=== PATIENT | female | born 1995 | race African-American/Black ===

== ENCOUNTER → 2016-06-19 | Outpatient (CLI) | payer OTHER ==
[~2016-06-19] MED LIST: IBUP80TA PO
--- NOTE | 2016-06-19 19:23 | REP ---
Pelvic ultrasound: Comparisons 04/22/2014. The study is performed with transabdominal, endovaginal and Doppler ultrasound assessment. The urinary bladder is adequately distended. The uterus is anteverted and normal size measuring 8.3 x 4.3 x 4.9 cm. The endometrium is not thickened measuring 3.8 mm. There is an IUD within the endometrial canal. The ovaries are normal size. Right ovary measures 2.6 x 2.1 x 2.0 cm. Left ovary measures 2.7 x 1.3 x 2.2 cm. There is no dominant ovarian mass or cyst. There is vascular flow in both ovaries. The Doppler resistive index of the intraparenchymal arteries on the right is 0.46, left 0.45. Impression: There is an IUD within the endometrial canal. There is vascular flow in both ovaries. Otherwise, negative pelvic ultrasound. Signed by Cortez Ramirez MD 06/19/2016 07:15 P
== END ==
LOC: M RAD 18:03
PROVIDERS: ATTEND Nurse Practitioner Adult Health
DX: Z01.419 Encounter for gynecological examination (general) (routine) without abnormal findings (principal); Z97.5 Presence of (intrauterine) contraceptive device

== ENCOUNTER → 2016-07-16 | Outpatient (REF) | payer OTHER | LOC: M LAB REF 12:15 | PROVIDERS: ATTEND Physician Assistant Medical | DX: Z11.3 Encounter for screening for infections with a predominantly sexual mode of transmission (principal) ==

== ENCOUNTER → 2016-10-22 | Outpatient (REF) | payer MEDICAID, OTHER | LOC: M LAB REF 16:35 | PROVIDERS: ATTEND Physician Assistant Medical | DX: Z20.2 Contact with and (suspected) exposure to infections with a predominantly sexual mode of transmission (principal) ==

== ENCOUNTER → 2017-01-11 | Outpatient (REF) | payer OTHER | LOC: M LAB REF 18:25 | PROVIDERS: ATTEND Physician Assistant | DX: J02.9 Acute pharyngitis, unspecified (principal) ==

== ENCOUNTER → 2017-12-09 | Outpatient (REF) | payer OTHER ==
[2017-12-09 23:40] LABS: CHLAMYDIA DNA AMPLIFICATION NEGATIVE (NEGATIVE); GC DNA AMPLIFICATION NEGATIVE (NEGATIVE)
== END ==
LOC: M LAB REF 19:18
DX: R30.0 Dysuria (principal)
CPT/HCPCS: 87086

== ENCOUNTER → 2018-06-18 | Outpatient (REF) | payer OTHER ==
[2018-06-18 19:33] LABS: INFLUENZA A AMPLIFICATION NEGATIVE (NEGATIVE); INFLUENZA B AMPLIFICATION NEGATIVE (NEGATIVE)
== END ==
LOC: M LAB REF 18:52
PROVIDERS: ATTEND Physician Assistant Medical
DX: J11.1 Influenza due to unidentified influenza virus with other respiratory manifestations (principal)

== ENCOUNTER → 2019-12-20 | Outpatient (REF) | payer OTHER | LOC: M LAB REF 16:03 | PROVIDERS: ATTEND Physician Assistant | DX: R30.0 Dysuria (principal) ==

== ENCOUNTER → 2020-05-29 | Outpatient (CLI) | payer OTHER ==
--- NOTE | 2020-05-29 22:47 | REP ---
INDICATION: IUD PAIN COMPARISON: None. TECHNIQUE: Transabdominal pelvic ultrasound followed by transvaginal examination for better evaluation of the endometrium and adnexa with color Doppler evaluation of the ovaries. FINDINGS: Bladder is unremarkable and measures 6.5 x 2.2 x 4.9 cm. Normal anteverted uterus measures 8.9 x 4.0 x 4.4 cm. The endometrial complex measures 2 mm thickness. IUD identified in central satisfactory position. Bilateral ovaries are normal in appearance and vascularity without evidence for torsion. Right ovary measures 3.2 x 2.5 x 2.2 cm and includes 1.2 cm presumed physiologic cyst; R I = 0.40. Left ovary measures 2.6 x 1.7 x 2.2 cm; R I = 0.42. No pelvic fluid or adnexal mass lesion IMPRESSION: Essentially normal pelvic ultrasound. IUD appears to be in satisfactory position. Right ovarian cyst likely physiologic. <Electronically signed by David Sharpe > 05/29/20 [id number]
== END ==
LOC: M RAD 11:44
PROVIDERS: ATTEND Nurse Practitioner Adult Health
DX: N94.10 Unspecified dyspareunia (principal)

== ENCOUNTER 2020-06-05 15:07 | Emergency (ER) | payer OTHER ==
[~2020-06-05] VITALS: Ht 162.6 cm; Wt 64.3 kg
[2020-06-05 15:08] VITALS: BP 133/86
[2020-06-05] MEDS ORDERED: MIRE1IUD IU (15:17)
--- NOTE | 2020-06-05 15:46 | REP ---
INDICATION: facial trauma. COMPARISON: Comparison maxillofacial CT study October 07, 2010.. TECHNIQUE: Helical scanning is acquired and 2 mm axial images re-formatted. Coronal MPR images are generated and reviewed. FINDINGS: Bony orbital and paranasal sinus margins are intact. Zygomatic arches are intact. The nasal bone and inferior maxillary spine show no evidence of fracture. No mandibular fracture is seen. No skull base fracture is appreciated. The frontal sinuses are clear. Ethmoid air cells are clear except for a small mucous retention cyst anteriorly on the left. There are small mucous retention cysts 1 in each side of the maxillary sinuses as well. Ostiomeatal complexes are unremarkable. Bony nasal septum is in the midline. Right-sided nasal jewelry is noted incidentally. No intraorbital mass or hematoma is seen. The visualized intracranial structures are unremarkable. IMPRESSION: No traumatic abnormality noted. Small mucous retention cysts in the maxillary sinuses and left ethmoid sinuses as noted above. <Electronically signed by Mihai Anguiano > 06/05/20 [id number]
== END 2020-06-05 16:45 | disposition home or self-care (01) ==
LOC: M ED 15:07
DX: S00.83XA Contusion of other part of head, initial encounter (principal); S01.512A Laceration without foreign body of oral cavity, initial encounter; R22.0 Localized swelling, mass and lump, head; W21.11XA Struck by baseball bat, initial encounter; Y92.098 Other place in other non-institutional residence as the place of occurrence of the external cause; Y93.89 Activity, other specified; Y99.8 Other external cause status; Z97.5 Presence of (intrauterine) contraceptive device

== ENCOUNTER → 2021-09-13 | Outpatient (REF) | payer OTHER ==
[~2021-09-13] MED LIST changes: +MIRE1IUD IU
[2021-09-13 14:50] LABS: GC DNA AMPLIFICATION NEGATIVE (NEGATIVE)
== END ==
LOC: M LAB REF 12:12
PROVIDERS: ATTEND Physician Assistant
DX: N89.8 Other specified noninflammatory disorders of vagina (principal)

== ENCOUNTER → 2022-03-01 | Outpatient (REF) | payer MEDICAID | LOC: M LAB REF 17:04 | PROVIDERS: ATTEND Physician Assistant | DX: B34.9 Viral infection, unspecified (principal) ==

== ENCOUNTER → 2022-11-27 | Outpatient (REF) | payer OTHER, MEDICAID ==
[2022-11-27 19:11] LABS: APPEARANCE, URINE CLEAR (CLEAR); BACTERIA, URINE AUTO NEGATIVE (NEGATIVE); BILIRUBIN, URINE AUTO NEGATIVE (NEGATIVE); BLOOD, URINE BLOOD 1+ (NEGATIVE); COLOR, URINE YELLOW (YELLOW); GLUCOSE, URINE (UA) AUTO NEGATIVE (NEGATIVE); KETONE, URINE AUTO NEGATIVE (NEGATIVE); LEUKOCYTE ESTERASE, URINE AUTO TRACE (NEGATIVE); MUCUS, URINE SMALL (NEGATIVE); NITRITE, URINE AUTO NEGATIVE (NEGATIVE); PROTEIN, URINE AUTO NEGATIVE (NEGATIVE); RBC, URINE AUTO 4 /HPF (0-3); SPECIFIC GRAVITY URINE AUTO 1.018 (1.002-1.035); SQUAMOUS EPITHELIAL CELL UR AU 2 /HPF (0-6); UROBILINOGEN, URINE AUTO 0.2 mg/dL (0.0-2.0); WBC, URINE AUTO 1 /HPF (0-3)
[2022-11-27 19:51] LABS: GC DNA AMPLIFICATION NEGATIVE (NEGATIVE)
== END ==
LOC: M LAB REF 16:31
PROVIDERS: ATTEND Physician Assistant
DX: N39.0 Urinary tract infection, site not specified (principal); Z20.2 Contact with and (suspected) exposure to infections with a predominantly sexual mode of transmission

== ENCOUNTER → 2023-04-08 | Outpatient (REF) | payer OTHER | LOC: M LAB REF 16:24 | PROVIDERS: ATTEND Physician Assistant | DX: B34.9 Viral infection, unspecified (principal) ==

== ENCOUNTER 2023-11-28 15:17 | Observation (INO) | payer OTHER ==
[~2023-11-28] VITALS: Ht 165.1 cm; Wt 69.0 kg
[2023-11-28 16:07] LABS: BASO % 0.5 % (0.0-1.0); EOS # 0.1 10^3/uL (0.0-0.5); EOS % 1.2 % (0.0-3.0); HEMATOCRIT 31.3 % (36.0-47.0); HEMOGLOBIN 10.1 g/dl (12.0-15.5); LYMPH % 30.4 % (24.0-44.0); MEAN CORPUSCULAR HEMOGLOBIN 31.8 pg (27.0-33.0); MEAN CORPUSCULAR HGB CONC 32.3 g/dl (32.0-36.5); MEAN CORPUSCULAR VOLUME 98.4 fl (80.0-96.0); MONO # 0.4 10^3/uL (0.0-0.8); MONO % 5.6 % (2.0-8.0); NEUTROPHILS % 62.1 % (36.0-66.0); PLATELET COUNT, AUTOMATED 191 10^3/uL (150-450); RED BLOOD COUNT 3.18 10^6/uL (4.00-5.40); WHITE BLOOD COUNT 6.4 10^3/uL (4.0-10.0)
[2023-11-28 16:38] LABS: HCG, SERUM QUANTITATIVE 59.1 MIU/ML (<4.2)
[2023-11-28 16:40] LABS: BLOOD UREA NITROGEN 14 MG/DL (9-23); CALCIUM LEVEL 8.7 MG/DL (8.5-10.1); CARBON DIOXIDE LEVEL 26 MMOL/L (20-31); CHLORIDE LEVEL 109 MMOL/L (98-107); CREATININE FOR GFR 1.15 MG/DL (0.55-1.30); GLOMERULAR FILTRATION RATE > 60.0 (>60); GLUCOSE, FASTING 86 MG/DL (60-100); POTASSIUM SERUM 4.5 MMOL/L (3.5-5.1); SODIUM LEVEL 137 MMOL/L (136-145)
[2023-11-28] MEDS: IBUPROFEN 800 MG TAB PO ONE (18:39)
[2023-11-28] MEDS ORDERED: IBUP80TA PO (20:24)
[2023-11-28] MEDS ORDERED: HOME MED LIST COMPLETE! XX SCH (20:25)
[2023-11-28] MEDS ORDERED: MIDAZOLAM INJ 2MG/2ML VIAL As Ordered ONE (20:58)
[2023-11-28] MEDS ORDERED: fentaNYL 100 MCG/2 ML INJECTION As Ordered ONE (20:59)
[2023-11-28] MEDS ORDERED: propofoL 200 MG/20 ML VIAL As Ordered ONE (21:10)
[2023-11-28] MEDS: DOXYCYCLINE HYCLATE 100MG/10ML VIAL As Ordered ONE (21:15)
[2023-11-28] MEDS: TRANEXAMIC ACID 100 MG/ML 10ML VIAL As Ordered ONE (22:17)
[2023-11-28] MEDS ORDERED: ONDANSETRON 4MG 2ML VIAL As Ordered ONE (22:31)
[2023-11-28] MEDS ORDERED: KETOROLAC 60MG 2ML VIAL As Ordered ONE (22:31)
[2023-11-28] MEDS ORDERED: METHYLERGONOVINE MALEATE 0.2MG/ML 1ML VIAL As Ordered ONE (23:07)
[2023-11-28] MEDS ORDERED: METHYLERGONOVINE MALEATE 0.2MG/ML 1ML VIAL IM PRN (23:40)
[2023-11-28] MEDS ORDERED: ONDANSETRON 4MG 2ML VIAL IV PRN (23:40)
[2023-11-28] MEDS ORDERED: TRANEXAMIC ACID INJection 1,000 MG in NS 100 ML IV PRN (23:40)
[2023-11-28] MEDS ORDERED: CARBOPROST TROMETHAMINE 250 MCG/ML AMP IM PRN (23:40)
[2023-11-28] MEDS ORDERED: ACETAMINOPHEN 500 MG TAB PO PRN (23:45)
[2023-11-28] MEDS ORDERED: IBUPROFEN 600MG TAB PO PRN (23:45)
[2023-11-29] VITALS (18 sets, daily range): BP systolic 96–135; BP diastolic 50–85; TEMP 97.6–98.8; O2SAT 98–100
[2023-11-29] MEDS: RHO(D) IMMUNE GLOBULIN/MALTOSE 500MCG(2500IU)/2.2ML VIAL (WINRHO) IM SCH (00:11)
[2023-11-29] MEDS: diphenhydrAMINE 25MG CAP PO PRN (01:23)
[2023-11-29] MEDS: LR 1,000 ML IV SCH (01:23)
[2023-11-29 01:25] LABS: HEMATOCRIT 24.5 % (36.0-47.0); MEAN CORPUSCULAR HEMOGLOBIN 32.3 pg (27.0-33.0); MEAN CORPUSCULAR HGB CONC 33.1 g/dl (32.0-36.5); MEAN CORPUSCULAR VOLUME 97.6 fl (80.0-96.0); PLATELET COUNT, AUTOMATED 154 10^3/uL (150-450); RED BLOOD COUNT 2.51 10^6/uL (4.00-5.40); WHITE BLOOD COUNT 7.2 10^3/uL (4.0-10.0)
[2023-11-29 01:37] LABS: HEMOGLOBIN 8.1 g/dl (12.0-15.5)
[2023-11-29 06:07] LABS: HEMATOCRIT 21.9 % (36.0-47.0); HEMOGLOBIN 7.1 g/dl (12.0-15.5); MEAN CORPUSCULAR HEMOGLOBIN 31.6 pg (27.0-33.0); MEAN CORPUSCULAR HGB CONC 32.4 g/dl (32.0-36.5); MEAN CORPUSCULAR VOLUME 97.3 fl (80.0-96.0); PLATELET COUNT, AUTOMATED 138 10^3/uL (150-450); RED BLOOD COUNT 2.25 10^6/uL (4.00-5.40); WHITE BLOOD COUNT 5.6 10^3/uL (4.0-10.0)
[2023-11-29 16:08] LABS: HEMATOCRIT 29.9 % (36.0-47.0)
[2023-11-29 16:12] LABS: HEMOGLOBIN 9.7 g/dl (12.0-15.5)
== END 2023-11-29 17:22 | disposition home or self-care (01) ==
LOC: M ED 15:17 → INTOOBSV 19:32 → M ED INP 19:32 → M PED 11-29 00:30
PROVIDERS: ADMIT Obstetrics & Gynecology; ATTEND Obstetrics & Gynecology
DX: O04.6 Delayed or excessive hemorrhage following (induced) termination of pregnancy (principal); O04.89 (Induced) termination of pregnancy with other complications; Z88.0 Allergy status to penicillin
CPT/HCPCS: 36415; 59812; 76856; 80048; 81001; 84702; 85014; 85018; 85025; 85027; 86850; 86900; 86901; 86920; 87086; 88305; 93976; 99284; J0665; J1885; J2210; J2250; J2405; J2792; J3010; P9016

== ENCOUNTER → 2024-04-19 | Outpatient (REF) | payer OTHER ==
[2024-04-19 16:59] LABS: BASO % 0.7 % (0.0-1.0); EOS # 0.1 10^3/uL (0.0-0.5); EOS % 1.4 % (0.0-3.0); HEMATOCRIT 39.7 % (36.0-47.0); HEMOGLOBIN 13.1 g/dl (12.0-15.5); LYMPH # 1.9 10^3/uL (1.5-5.0); LYMPH % 34.1 % (24.0-44.0); MEAN CORPUSCULAR VOLUME 94.1 fl (80.0-96.0); MONO # 0.3 10^3/uL (0.0-0.8); NEUTROPHILS # 3.3 10^3/uL (1.5-8.5); NEUTROPHILS % 57.6 % (36.0-66.0); PLATELET COUNT, AUTOMATED 219 10^3/uL (150-450); RED BLOOD COUNT 4.22 10^6/uL (4.00-5.40); WHITE BLOOD COUNT 5.7 10^3/uL (4.0-10.0)
[2024-04-19 17:28] LABS: ALKALINE PHOSPHATASE 42 U/L (35-104); ALT/SGPT 18 U/L (7.0-40); AST/SGOT < 8 U/L (<34); BILIRUBIN,TOTAL 0.6 MG/DL (0.3-1.2); BLOOD UREA NITROGEN 15 MG/DL (9-23); CALCIUM LEVEL 9.2 MG/DL (8.5-10.1); CARBON DIOXIDE LEVEL 27 MMOL/L (20-31); CHLORIDE LEVEL 105 MMOL/L (98-107); CHOLESTEROL LEVEL 163 MG/DL (<200); CHOLESTEROL RISK RATIO 2.57 (<5); CREATININE FOR GFR 0.96 MG/DL (0.55-1.30); GLOMERULAR FILTRATION RATE > 60.0 (>60); GLUCOSE, FASTING 85 MG/DL (60-100); HDL CHOLESTEROL 63.2 MG/DL (>40); IRON (FE) 119 UG/DL (50-170); LDL CHOLESTEROL 88.6 MG/DL (<100); NON-HDL-C 99.8 MG/DL; POTASSIUM SERUM 4.9 MMOL/L (3.5-5.1); SODIUM LEVEL 142 MMOL/L (136-145); TOTAL PROTEIN 7.3 G/DL (5.7-8.2); TRIGLYCERIDES LEVEL 56 MG/DL (<150)
[2024-04-19 17:29] LABS: THYROID STIMULATING HORMONE 0.581 uIU/ML (0.55-4.78)
[2024-04-19 17:44] LABS: HEMOGLOBIN A1c 5.3 % (4.0-6.0)
== END ==
LOC: M LAB REF 16:20
PROVIDERS: ATTEND Family Medicine Addiction Medicine
DX: Z68.27 Body mass index [BMI] 27.0-27.9, adult (principal)

== ENCOUNTER → 2024-04-19 | Outpatient (REF) | payer OTHER | LOC: M SFHCWAGY 13:43 | PROVIDERS: ATTEND Obstetrics & Gynecology | DX: Z01.419 Encounter for gynecological examination (general) (routine) without abnormal findings (principal); Z77.9 Other contact with and (suspected) exposures hazardous to health; Z12.4 Encounter for screening for malignant neoplasm of cervix ==